=== PATIENT | female | born 1995 | race African-American/Black ===

== ENCOUNTER 2019-03-30 13:52 | Emergency (ER) | payer SELFPAY ==
[~2019-03-30] VITALS: Ht 154.9 cm; Wt 54.4 kg
[2019-03-30 13:59] VITALS: BP 131/79
--- NOTE | 2019-03-30 14:07 | NUR ---
ED Nurse Note: Report given to RONNIE Cotto.
[2019-03-30] MEDS ORDERED: Morphine Sulfate 4mg/ml Inj (IV USE ONLY) IVP ONE (14:15)
[2019-03-30] MEDS ORDERED: Propofol 200mg/20ml IV ONE ×2 (14:15→15:00)
--- NOTE | 2019-03-30 14:15 | NUR ---
ED Nurse Note: Patient walked in to ER due to being unable to close her mouth for the past ~1hr and pain in the jaw area. Patient was yawning when it happened and hx of multiple jaw dislocation. Denies any injury. Denies any breathing problem, fever or chills. Regular, unlabored breathing noted. Patient reports that she is not at this time and has no chance of being .
--- NOTE | 2019-03-30 14:25 | NUR ---
ED Nurse Note: Informed consent for reduction of discolated jaw under moderat sedation obtained by Dr. Vickers, witnessed by RONNIE Callahan. Patient reports no allergic to soy or egg. Last oral intake was last night. RT called. Placed patient on geophysical party chief. Bed in lowest position.
[2019-03-30 14:30] VITALS: BP 118/66
--- NOTE | 2019-03-30 14:30 | NUR ---
ED Nurse Note: Applied vijaya wrap around the jaw /head as ordered by Diaz, EMT.
[2019-03-30 14:34] VITALS: BP 114/79
--- NOTE | 2019-03-30 14:34 | NUR ---
Note gilmer in EDM - 03/30/19 at 1819 by DAJA ED Nurse Note: Reduction of dislocated jaw under moderate sedation performed by Dr. Vickers. Total of propofol 170mg IVP was given by Dr. Vickers. Patient remained on environmental monitoring technician. Patient maintained end tidal CO2 monitor > 30mm Hg throught the procedure. Patient tolerated the procedure with minimal discomfort.
--- NOTE | 2019-03-30 14:34 | NUR ---
ED Nurse Note: Reduction of dislocated jaw under moderate sedation performed by Dr. Vickers. Total of propofol 170mg IVP was given by Dr. Vickers. Patient remained on poem writer. Patient maintained spontaneous breathing with RR>14/min and end tidal CO2 monitor > 35mm Hg throughout the procedure. Patient tolerated the procedure with minimal discomfort.
--- NOTE | 2019-03-30 14:40 | NUR ---
ED Nurse Note: RN removed N/C. Patient awake, alert, oriented x 4. Able to follow commands. Patient maintaining pulse oximetry reading >94% on room air.
--- NOTE | 2019-03-30 14:45 | NUR ---
ED Nurse Note: Patient able to take a deep breath and cough. Patient awake, alert, oriented x 3.
--- NOTE | 2019-03-30 14:47 | Emergency Room Report ---
History of Present Illness General Chief Complaint: Pain Source: Patient Present Illness HPI Patient is a 23-year-old female presented after increased jaw pain and difficulty closing her mouth. She had prior history of recurrent jaw dislocations. She states that she is had multiple reductions in the past. She denies any other locations of pain or injury. Had been unable to talk immediately after opening her mouth. Allergies: Coded Allergies: No Known Allergies (Unverified , 03/30/19) Patient History Past Medical History: see triage record Last Menstrual Period: 03/05/19 Reviewed Nursing Documentation: PMH: Agreed; PSxH: Agreed Nursing Documentation-PMH Past Medical History: No Stated History Review of Systems All Other Systems: negative except mentioned in HPI Physical Exam Vital Signs Date Time Temp Pulse Resp B/P (MAP) Pulse Ox O2 Delivery O2 Flow Rate FiO2 03/30/19 13:59 98.4 18 131/79 99 Room Air 03/30/19 13:59 62 Sp02 EP Interpretation: reviewed, normal General Appearance: normal inspection, well appearing, no apparent distress, alert Head: atraumatic ENT: normal ENT inspection, hearing grossly normal, normal voice, other - jaw held open Neck: normal inspection, full range of motion, supple, no bony tend Respiratory: normal inspection, lungs clear, normal breath sounds, no respiratory distress, no retraction, no wheezing Cardiovascular #1: regular rate, rhythm, no edema Gastrointestinal: normal inspection, normal bowel sounds, non tender, soft, no guarding, no hernia Genitourinary: no CVA tenderness Musculoskeletal: normal inspection, back normal, normal range of motion Neurologic: alert, motor strength/tone normal, oriented x3, responsive, speech normal, normal inspection Psychiatric: normal inspection, judgement/insight normal, mood/affect normal Procedures Procedural Sedation Consent: Emergent Time out called at: 14:26 Airway Assessment (Malampati): I Heart: normal Lungs: normal Abdomen: normal Extremities: normal Plan for Moderate Sedation: Propofol ASA Score: I Procedure Narrative Patient was given 15 mL aliquots of propofol until adequate sedation. She was maintained on oxygen as well as a CO2 monitor. Patient tolerated reduction well. She was subsequently awake immediately after reduction attempt. Start Time: 14:27 End Time: 14:32 Communication: No Apparent Limitation Mental Status: Awake Respiration: Unlabored Skin Condition: WNL Abdomen: WNL Nausea: NO Vomiting: NO Medical Decision Making Diagnostic Impression: Primary Impression: Dislocation, jaw closed ER Course Patient presented for possible jaw dislocation. Differential diagnosis include was not limited to jaw dislocation, dystonic reaction, among others. Patient presented what appears to be an anterior jaw dislocation. Patient refused attempts at reduction without sedation.Patient given propofol in 15 mL aliquots until adequately sedated. Patient's jaw was reduced with inferior pressure and patient subsequently able to talk normally and close her mouth. Last Vital Signs Date Time Temp Pulse Resp B/P (MAP) Pulse Ox O2 Delivery O2 Flow Rate FiO2 03/30/19 13:59 98.4 62 18 131/79 (96) 99 Room Air Status: improved Disposition: HOME, SELF-CARE Condition: Stable Vijay Vickers MD Mar 30, 2019 14:47
[2019-03-30] MEDS ORDERED: IBUPROFEN600 MG ORAL (14:55)
--- NOTE | 2019-03-30 15:34 | NUR ---
ED Nurse Note: Patient able to drink apple juice without problem.
--- NOTE | 2019-03-30 15:45 | NUR ---
ED Nurse Note: Patient voided x 1. Patient ambulated to the restroom and returned to bed with steady gait. Reports no dizziness or drowsiness.
[2019-03-30 15:52] VITALS: BP 109/70
--- NOTE | 2019-03-30 15:52 | NUR ---
ED Nurse Note: Patient is being discharged from medical care. D/C instruction and prescription given to patient. Patient verbalized understanding of it. Patient is leaving the facilitiy accompanied by friend, Hollins with all her belongings.
== END 2019-03-30 15:52 | disposition home or self-care (01) ==
LOC: EMR 15:06
DX: S03.00XA Dislocation of jaw, unspecified side, initial encounter (principal); X58.XXXA Exposure to other specified factors, initial encounter; Y93.9 Activity, unspecified; Y92.9 Unspecified place or not applicable
CPT/HCPCS: 21480; 96374; 96375; 99284; J2704